=== PATIENT | female | born 2000 | race Hispanic/Latino ===

== ENCOUNTER 2021-06-28 16:02 | Emergency (ER) | payer OTHER ==
[~2021-06-28] VITALS: Ht 152.4 cm; Wt 59.0 kg
[2021-06-28] MEDS ORDERED: ONDANSETRON ODT4 MG PO (16:39)
[2021-06-28] MEDS ORDERED: IBUPROFEN600 MG PO (16:39)
== END 2021-06-28 17:30 | disposition home or self-care (01) ==
LOC: FSED 16:14
DX: U07.1 COVID-19 (principal); R11.2 Nausea with vomiting, unspecified; R42 Dizziness and giddiness; R53.1 Weakness
CPT/HCPCS: 99283